=== PATIENT | male | born 1995 | race Caucasian/White ===

== ENCOUNTER 2018-08-05 11:17 | Emergency (ER) | payer BC, OTHER ==
--- NOTE | 2018-08-05 14:51 | ER ---
Nurse's Notes [facility] Name: Sanchez River Age: 23 yrs Sex: Male : 1995 Arrival Date: 08/05/2018 Time: :18 Bed 5 Private MD: None, None Diagnosis: Chest wall contusion Presentation: 08/05 11:30 Presenting complaint: Patient states: fell on stairs today, c/o right shoulder, arm, sv upper back, side pain with breathing. Denies LOC. Care prior to arrival: None. Mechanism of Injury: Fall down steps. Trauma event details: Injury occurred in the [facility], Injury occurred: at home. Injury occurred: August 05, 2018. 11:30 Acuity: JAVY 3 sv 11:30 Method Of Arrival: Ambulatory sv 11:31 Transition of care: patient was not received from another setting of care. Onset of sv symptoms was August 05, 2018. 12:00 Risk Assessment: Do you want to hurt yourself or someone else? Patient reports no sg desire to harm self or others. Initial Sepsis Screen: Does the patient meet any 2 criteria? No. Patient's initial sepsis screen is negative. Does the patient have a suspected source of infection? No. Patient's initial sepsis screen is negative. Trauma Activation: Not Applicable Physician: ED Physician; Name: ; Notified At: ; Arrived At: Physician: General Surgeon; Name: ; Notified At: ; Arrived At: Physician: Radiology; Name: ; Notified At: ; Arrived At: Physician: Respiratory; Name: ; Notified At: ; Arrived At: Physician: Lab; Name: ; Notified At: ; Arrived At: Historical: - Allergies: 11:33 No Known Allergies; sv - Home Meds: 11:33 None [Active]; sv - PMHx: 11:33 Marfan's syndrome; sv - PSHx: 11:33 Knee surgery; Tonsillectomy; gynecomastia surgery; sv - Immunization history:: Adult Immunizations up to date. - Social history:: Smoking status: Patient/guardian denies using tobacco. - Ebola Screening: : No symptoms or risks identified at this time. Screenin:40 Abuse screen: Denies threats or abuse. Denies injuries from another. Nutritional sg screening: No deficits noted. Tuberculosis screening: No symptoms or risk factors identified. Never had TB. Fall Risk None identified. Assessment: 11:40 General: Appears in no apparent distress. comfortable, well groomed, well developed, sg well nourished, Behavior is calm, cooperative, appropriate for age. Pain: Complains of pain in right lateral anterior chest. Neuro: Level of Consciousness is awake, alert, obeys commands, Oriented to person, place, time, [employer] are equal bilaterally Moves all extremities. Full function Gait is steady, Facial symmetry appears normal. Cardiovascular: Heart tones S1 S2 present Capillary refill is brisk in bilateral fingers Patient's skin is warm and dry. Chest pain is located in anterior posterior chest wall. Respiratory: Airway is patent Respiratory effort is even, unlabored, Respiratory pattern is regular, symmetrical. Respiratory: Reports pain with respiration. GI: No signs and/or symptoms were reported involving the gastrointestinal system. : No signs and/or symptoms were reported regarding the genitourinary system. EENT: No signs and/or symptoms were reported regarding the EENT system. Derm: Skin is pink, warm \T\ dry. Musculoskeletal: Circulation, motion, and sensation intact. Range of motion: intact in all extremities, Swelling absent. 12:40 Reassessment: Patient appears in no apparent distress at this time. Patient and/or sg family updated on plan of care and expected duration. Pain level reassessed. Patient is alert, oriented x 3, equal unlabored respirations, skin warm/dry/pink. Patient states feeling better. 13:40 Reassessment: Patient appears in no apparent distress at this time. Patient and/or sg family updated on plan of care and expected duration. Pain level reassessed. Patient is alert, oriented x 3, equal unlabored respirations, skin warm/dry/pink. awaiting radiology results at this time Patient states feeling better. 15:30 Reassessment: Patient appears in no apparent distress at this time. Patient and/or sg family updated on plan of care and expected duration. Pain level reassessed. Patient is alert, oriented x 3, equal unlabored respirations, skin warm/dry/pink. Patient states feeling better. Vital Signs: 11:33 BP 118 / 88; Pulse 101; Resp 20; Temp 98.8; Pulse Ox 96% ; Weight 145.15 kg; Height 6 sv ft. 10 in. (208.28 cm); Pain 3/10; 14:30 BP 116 / 78; Pulse 60; Resp 17; Pulse Ox 98% on R/A; sg 15:30 BP 112 / 80; Pulse 62; Resp 18; Pulse Ox 96% on R/A; Pain 3/10; sg 11:33 Body Mass Index 33.46 (145.15 kg, 208.28 cm) ED Course: 11:18 Patient arrived in ED. sb2 11:19 None, None is Private Physician. sb2 11:30 No provider procedures requiring assistance completed. Patient did not have IV access sg during this emergency room visit. 11:31 Triage completed. sv 11:33 Arm band placed on left wrist. sv 11:33 Patient placed in waiting room, Patient notified of wait time. sv 11:58 Denys Chong PA is PHCP. jr8 11:58 Tank Hanley MD is Attending Physician. jr8 12:03 Manuel Cornelius, RN is Primary Nurse. sg 12:30 Patient has correct armband on for positive identification. Bed in low position. Call sg light in reach. Pulse ox on. NIBP on. 14:20 Patient moved to radiology via wheelchair. jb2 14:35 X-ray completed. Patient tolerated procedure well. Patient moved back from radiology. jb2 14:46 XRAY Chest (1 view) In Process Unspecified. EDMS 14:48 XRAY Ribs RIGHT In Process Unspecified. EDMS Administered Medications: No medications were administered Outcome: 14:51 Discharge ordered by . jr8 15:30 Discharged to home ambulatory, with family. sg 15:30 Condition: good 15:30 Discharge instructions given to patient, Instructed on discharge instructions, follow up and referral plans. medication usage, safety practices, Demonstrated understanding of instructions, follow-up care, medications, Prescriptions given X 2. 15:32 Patient left the ED. bd Signatures: Dispatcher [employer] EDMS Yanni Ogden Stephanie, RN RN Manuel Cornelius RN RN Jett Zelaya jb2 Denys Chong PA PA jrDebo Martinez sb2 Corrections: (The following items were deleted from the chart) 14:46 13:15 Patient moved to radiology via wheelchair. jb2 jb2
--- NOTE | 2018-08-05 14:51 | EDPHYS ---
Physician Documentation [facility] Name: Sanchez River Age: 23 yrs Sex: Male : 1995 Arrival Date: 08/05/2018 Time: 11:18 Bed 5 Private MD: None, None ED Physician Tank Hanley HPI: 08/05 12:07 This 23 yrs old Male presents to ER via Ambulatory with complaints of Fall jr8 Injury - SIDE PAIN,BACK PAIN. 12:07 Details of fall: The patient fell from a height, down approximately 3 stairs. jr8 12:08 Onset: The symptoms/episode began/occurred acutely, today. Associated injuries: The jr8 patient sustained injury to the chest, specifically the right lateral anterior chest, pain with breathing, pain with movement. Severity of symptoms: At their worst the symptoms were mild, in the emergency department the symptoms are unchanged. The patient has not experienced similar symptoms in the past. The patient has not recently seen a physician. Denies hitting head or neck. No LOC . Historical: - Allergies: 11:33 No Known Allergies; sv - Home Meds: 11:33 None [Active]; sv - PMHx: 11:33 Marfan's syndrome; sv - PSHx: 11:33 Knee surgery; Tonsillectomy; gynecomastia surgery; sv - Immunization history:: Adult Immunizations up to date. - Social history:: Smoking status: Patient/guardian denies using tobacco. - Ebola Screening: : No symptoms or risks identified at this time. ROS: 12:08 Eyes: Negative for injury, pain, redness, and discharge, ENT: Negative for injury, jr8 pain, and discharge, Neck: Negative for injury, pain, and swelling, Respiratory: Negative for shortness of breath, cough, wheezing, and pleuritic chest pain, Abdomen/GI: Negative for abdominal pain, nausea, vomiting, diarrhea, and constipation, Back: Negative for injury and pain, MS/Extremity: Negative for injury and deformity, Skin: Negative for injury, rash, and discoloration, Neuro: Negative for headache, weakness, numbness, tingling, and seizure. 12:08 Cardiovascular: Positive for chest pain, with cough, with movement. Exam: 12:08 Eyes: Pupils equal round and reactive to light, extra-ocular motions intact. Lids and jr8 lashes normal. Conjunctiva and sclera are non-icteric and not injected. Cornea within normal limits. Periorbital areas with no swelling, redness, or edema. ENT: Nares patent. No nasal discharge, no septal abnormalities noted. Tympanic membranes are normal and external auditory canals are clear. Oropharynx with no redness, swelling, or masses, exudates, or evidence of obstruction, uvula midline. Mucous membranes moist. Neck: Trachea midline, no thyromegaly or masses palpated, and no cervical lymphadenopathy. Supple, full range of motion without nuchal rigidity, or vertebral point tenderness. No Meningismus. Chest/axilla: Normal chest wall appearance and motion. Nontender with no deformity. No lesions are appreciated. Cardiovascular: Regular rate and rhythm with a normal S1 and S2. No gallops, murmurs, or rubs. Normal PMI, no JVD. No pulse deficits. Respiratory: Lungs have equal breath sounds bilaterally, clear to auscultation and percussion. No rales, rhonchi or wheezes noted. No increased work of breathing, no retractions or nasal flaring. Abdomen/GI: Soft, non-tender, with normal bowel sounds. No distension or tympany. No guarding or rebound. No evidence of tenderness throughout. Back: No spinal tenderness. No costovertebral tenderness. Full range of motion. Skin: Warm, dry with normal turgor. Normal color with no rashes, no lesions, and no evidence of cellulitis. MS/ Extremity: Pulses equal, no cyanosis. Neurovascular intact. Full, normal range of motion. Neuro: Awake and alert, GCS 15, oriented to person, place, time, and situation. Cranial nerves II-XII grossly intact. Motor strength 5/5 in all extremities. Sensory grossly intact. Cerebellar exam normal. Normal gait. Vital Signs: 11:33 BP 118 / 88; Pulse 101; Resp 20; Temp 98.8; Pulse Ox 96% ; Weight 145.15 kg; Height 6 sv ft. 10 in. (208.28 cm); Pain 3/10; 14:30 BP 116 / 78; Pulse 60; Resp 17; Pulse Ox 98% on R/A; sg 15:30 BP 112 / 80; Pulse 62; Resp 18; Pulse Ox 96% on R/A; Pain 3/10; sg 11:33 Body Mass Index 33.46 (145.15 kg, 208.28 cm) MDM: 11:58 Patient medically screened. jr8 14:50 Data reviewed: vital signs, nurses notes, radiologic studies, plain films, and as a jr8 result, I will discharge patient. Data interpreted: Pulse oximetry: on room air is 96 %. Interpretation: normal. Counseling: I had a detailed discussion with the patient and/or guardian regarding: the historical points, exam findings, and any diagnostic results supporting the discharge/admit diagnosis, radiology results, the need for outpatient follow up, a family practitioner, to return to the emergency department if symptoms worsen or persist or if there are any questions or concerns that arise at home. 08/05 12:06 Order name: XRAY Chest (1 view); Complete Time: 15: jr8 08/05 12:06 Order name: XRAY Ribs RIGHT; Complete Time: 15: jr8 Administered Medications: No medications were administered Disposition: 18:37 Co-signature as Attending Physician, Tank Hanley MD. rn Disposition: 08/05/18 14:51 Discharged to Home. Impression: Chest wall contusion . - Condition is Stable. - Discharge Instructions: Chest Wall Pain. - Prescriptions for Ibuprofen 800 mg Oral Tablet - take 1 tablet by ORAL route every 12 hours As needed take with food; 20 tablet. Cyclobenzaprine 10 mg Oral Tablet - take 1 tablet by ORAL route every 8 hours As needed; 30 tablet. - Work release form, Medication Reconciliation Form, Thank You Letter, Antibiotic Education, Prescription Opioid Use form. - Follow up: Private Physician; When: 1 week; Reason: Recheck today's complaints, Continuance of care, Re-evaluation by your physician. - Problem is new. - Symptoms have improved. Signatures: Dispatcher [employer] EDMS Yanni Ogden Stephanie, RN RN sv Nieto, Roman, MD MD rn Roszak, Josh, PA PA jr8 Corrections: (The following items were deleted from the chart) 12:09 12:07 Details of fall: The patient fell from a height, jr8 jr8 15:32 14:51 08/05/2018 14:51 Discharged to Home. Impression: Chest wall contusion . Condition bd is Stable. Forms are Medication Reconciliation Form, Thank You Letter, Antibiotic Education, Prescription Opioid Use. Follow up: Private Physician; When: 1 week; Reason: Recheck today's complaints, Continuance of care, Re-evaluation by your physician. Problem is new. Symptoms have improved. jr8
--- NOTE | 2018-08-05 14:59 | RAD REPORT ---
EXAM DESCRIPTION: RAD - Chest Single View - 08/05/2018 2:46 pm CLINICAL HISTORY: Fall, right-sided chest pain COMPARISON: None. TECHNIQUE: AP portable chest image was obtained . FINDINGS: Lungs are clear. Heart and vasculature are normal. No measurable pleural effusion and no p neumothorax. No gross bony abnormality seen. No acute aortic findings suspected. IMPRESSION: No acute cardiopulmonary process.
--- NOTE | 2018-08-05 14:59 | RAD REPORT ---
EXAM DESCRIPTION: Ribs Right - 08/05/2018 2:48 pm CLINICAL HISTORY: Fall, trauma to right ribcage, right-sided chest pain COMPARISON: None. FINDINGS: No displaced rib fractures are present and no nondisplaced rib fractures identifiable. No aggressive rib lesion. No underlying pneumothorax, effusion, infiltrate or pulmonary contusion. IMPRESSION: Negative right rib series.
== END 2018-08-05 15:32 | disposition home or self-care (01) ==
LOC: ER 11:17
DX: S20.219A Contusion of unspecified front wall of thorax, initial encounter (principal); W10.9XXA Fall (on) (from) unspecified stairs and steps, initial encounter; Y93.9 Activity, unspecified; Y92.9 Unspecified place or not applicable
CPT/HCPCS: 71045; 99283